=== PATIENT | female | born 2000 | race Caucasian/White ===

== ENCOUNTER 2019-01-21 00:39 | Emergency (ER) | payer OTHER ==
[~2019-01-21] VITALS: Ht 157.5 cm; Wt 64.4 kg
[2019-01-21 00:43] VITALS: BP 126/85
--- NOTE | 2019-01-21 00:48 | NUR ---
PT AMBULATED TO BED 2.
--- NOTE | 2019-01-21 01:40 | NUR ---
ERMD AT BEDSIDE.
--- NOTE | 2019-01-21 01:48 | NUR ---
C/O MOVING LOPEZ X1 WEEK. LOPEZ WORSE X6 HRS. HIT HEAD ONE WEEK AGO AND HAVING CONTINUOUS LOPEZ'S. VSS. DIZZINESS. NO CHANGE IN VISION. A&X4. PERRL. SHANE MADE AWARE.
[2019-01-21 02:13] VITALS: BP 126/85
== END 2019-01-21 02:13 | disposition home or self-care (01) ==
LOC: MED 00:39
DX: S09.90XA Unspecified injury of head, initial encounter (principal); W22.01XA Walked into wall, initial encounter; Y93.89 Activity, other specified; Y92.89 Other specified places as the place of occurrence of the external cause; Y99.8 Other external cause status
CPT/HCPCS: 70450; 99284

== ENCOUNTER 2019-02-21 20:47 | Emergency (ER) | payer OTHER ==
[~2019-02-21] VITALS: Ht 157.5 cm; Wt 65.8 kg
[2019-02-21 20:50] VITALS: BP 129/60
--- NOTE | 2019-02-21 20:50 | NUR ---
TO BED # 11 AMBULATORY
--- NOTE | 2019-02-21 21:12 | NUR ---
BIB SELF REPORTS HEADACHE AND LOWER ABD CRAMPING X3 DAYS. STATES THAT SHE IS SUPPOSE TO START HER PERIOD AND NORMALLY HAS THESE SYMPTOMS BEFORE SHE STARTS HER PERIOD. STATES THE HEADACHE IS LOCATED ABOVE HER EYES. DENIES OTHER SYMPTOMS AT THIS TIME.
[2019-02-21 21:21] LABS: APPEARANCE,URINE CLEAR (CLEAR); BILIRUBIN,URINE NEGATIVE (NEGATIVE); BLOOD, URINE NEGATIVE (NEGATIVE); COLOR,URINE YELLOW (YELLOW); LEUKOCYTE ESTERASE ,URINE NEGATIVE (NEGATIVE); NITRITE, URINE NEGATIVE (NEGATIVE); UGLUCOSE NEGATIVE (NEGATIVE)
[2019-02-21 22:15] LABS: BASOPHILS % (AUTO) 0.4 % (0.0-2.0); EOSINOPHILS # (AUTO) 0.2 K/uL (0-0.4); HEMATOCRIT 37.8 % (36-48); HEMOGLOBIN 12.6 g/dL (12.0-16.0); LYMPHOCYTES # (AUTO) 2.4 K/uL (2.5-16.5); LYMPHOCYTES % (AUTO) 26.4 % (20.5-51.1); MEAN CORPUSCULAR HEMOGLOBIN 29 pg (27-31); MEAN CORPUSCULAR HGB CONC 33 g/dL (33-37); MEAN CORPUSCULAR VOLUME 87.6 fL (80-94); MONOCYTES # (AUTO) 1.2 K/uL (0.8-1.0); MONOCYTES % (AUTO) 12.9 % (1.7-9.3); NEUTROPHILS # (AUTO) 5.2 K/uL (1.8-7.7); NEUTROPHILS % (AUTO) 58.3 % (42.2-75.2); PLATELET COUNT (AUTO) 305 K/uL (140-450); RED BLOOD CELL COUNT(AUTO) 4.32 MIL/uL (4.20-5.40); RED CELL DISTRIBUTION WIDTH 13.9 % (11.6-13.7)
[2019-02-21 22:40] LABS: ALBUMIN 3.9 g/dL (3.4-5.0); ANION GAP 11.5 (8-16); CARBON DIOXIDE 27.2 mmol/L (21-32); CREATININE 0.7 mg/dL (0.6-1.3); POTASSIUM 3.7 mmol/L (3.5-5.1); TOTAL BILIRUBIN 0.2 mg/dL (0.0-1.0)
--- NOTE | 2019-02-21 22:45 | NUR ---
NO NEW NEEDS STATED AT THIS TIME. PATIENT SITTING UP IN BED, AT BEDSIDE.
--- NOTE | 2019-02-22 | NUR ---
PATIENT INFORMED WE WERE WAITING FOR RESULTS. GIVEN SNACK AND WATER. NO NEEDS REPORTED.
[2019-02-22 01:11] VITALS: BP 129/60
--- NOTE | 2019-02-22 01:11 | NUR ---
Patient discharged with v/s stable. Written and verbal after care instructions given and explained. Patient verbalized understanding. Ambulatory with steady gait. All questions addressed prior to discharge. Advised to follow up with OB.
== END 2019-02-22 01:11 | disposition home or self-care (01) ==
LOC: MED 20:47
DX: O26.899 Other specified pregnancy related conditions, unspecified trimester (principal); R10.30 Lower abdominal pain, unspecified; R51 Headache
CPT/HCPCS: 36415; 76817; 80053; 81003; 81025; 83690; 84702; 85025; 86900; 86901; 99284; Q0092

== ENCOUNTER 2019-02-25 04:06 | Emergency (ER) | payer OTHER ==
[~2019-02-25] VITALS: Ht 157.5 cm; Wt 67.6 kg
[2019-02-25 04:18] VITALS: BP 118/64
--- NOTE | 2019-02-25 04:26 | NUR ---
PT AMBULATED TO THE RESTROOM AND THEN TO BED #12
--- NOTE | 2019-02-25 04:31 | NUR ---
PT AMBULATED TO BED #7
--- NOTE | 2019-02-25 04:32 | NUR ---
PT CAME IN TO ER FOR A RECHECK. PT STATED THAT SHE WAS SEEN 3 DAYS AGO AND WAS INSTRUCTED TO COME BACK TO RECHECK HER DUE TO CRAMPING/5 WEEKS . PT STATES SHE STILL HAS SOME CRAMPING. NO PAIN AT THIS TIME. PT MADE AN OPP FOR February WITH AN OBGYN. PT DENIES VAG BLEEDING. PT STATES SHE HAS NO PAIN AT THIS TIME 0/10. ER MD MADE AWARE OF STATUS. SAFETY MEASURES IN PLACE. PT IS . [facility]
--- NOTE | 2019-02-25 04:42 | NUR ---
LAB AT BEDSIDE.
[2019-02-25 04:59] LABS: BASOPHILS % (AUTO) 0.3 % (0.0-2.0); EOSINOPHILS # (AUTO) 0.2 K/uL (0-0.4); EOSINOPHILS % (AUTO) 2.1 % (0.0-4.0); HEMATOCRIT 37.4 % (36-48); HEMOGLOBIN 12.6 g/dL (12.0-16.0); LYMPHOCYTES # (AUTO) 2.8 K/uL (2.5-16.5); LYMPHOCYTES % (AUTO) 31.7 % (20.5-51.1); MEAN CORPUSCULAR HEMOGLOBIN 30 pg (27-31); MEAN CORPUSCULAR HGB CONC 34 g/dL (33-37); MEAN CORPUSCULAR VOLUME 88.3 fL (80-94); MONOCYTES # (AUTO) 0.9 K/uL (0.8-1.0); MONOCYTES % (AUTO) 10.4 % (1.7-9.3); NEUTROPHILS # (AUTO) 4.9 K/uL (1.8-7.7); NEUTROPHILS % (AUTO) 55.5 % (42.2-75.2); PLATELET COUNT (AUTO) 294 K/uL (140-450); RED BLOOD CELL COUNT(AUTO) 4.24 MIL/uL (4.20-5.40); RED CELL DISTRIBUTION WIDTH 13.7 % (11.6-13.7); WHITE BLOOD COUNT (AUTO) 8.9 K/uL (4.5-11.0)
[2019-02-25 05:02] LABS: BILIRUBIN,URINE NEGATIVE (NEGATIVE); BLOOD, URINE NEGATIVE (NEGATIVE); LEUKOCYTE ESTERASE ,URINE NEGATIVE (NEGATIVE); NITRITE, URINE NEGATIVE (NEGATIVE); UGLUCOSE NEGATIVE (NEGATIVE)
--- NOTE | 2019-02-25 05:17 | NUR ---
DR. OSMAN BEDSIDE EVALUATING PT
[2019-02-25 05:24] LABS: APPEARANCE,URINE HAZY (CLEAR); COLOR,URINE YELLOW (YELLOW)
[2019-02-25 05:26] LABS: RBC,URINE 0-5 /HPF (0-5); WBC,URINE 0-5 /HPF (0-5)
--- NOTE | 2019-02-25 05:58 | NUR ---
Patient discharged with v/s stable. Patient acting appropriatly, states she has a appointment this with OBGYN. Written and verbal after care instructions given and explained. Patient verbalized understanding. Ambulatory with steady gait. All questions addressed prior to discharge. Advised to follow up with PMD.
[2019-02-25 06:00] VITALS: BP 110/68
== END 2019-02-25 05:58 | disposition home or self-care (01) ==
LOC: MED 04:06
DX: O20.0 Threatened abortion (principal); Z3A.01 Less than 8 weeks gestation of pregnancy
CPT/HCPCS: 36415; 81001; 81025; 84702; 85025; 87086; 99283

== ENCOUNTER 2019-04-03 19:07 | Emergency (ER) | payer OTHER ==
[~2019-04-03] VITALS: Ht 162.6 cm; Wt 66.0 kg
[2019-04-03 19:20] VITALS: BP 116/81
--- NOTE | 2019-04-03 19:24 | NUR ---
PT AMBULATED TO LOBBY AT THIS TIME, VSS.
[2019-04-03 21:23] VITALS: BP 123/81
--- NOTE | 2019-04-03 21:24 | NUR ---
Patient discharged with v/s stable. Written and verbal after care instructions given and explained. Patient alert, oriented and verbalized understanding of instructions. Ambulatory with steady gait. All questions addressed prior to discharge. ID band removed. Patient advised to follow up with PMD. Rx of BENADRYL given. Patient educated on indication of medication including possible reaction and side effects. Opportunity to ask questions provided and answered.
== END 2019-04-03 21:23 | disposition home or self-care (01) ==
LOC: MED 19:07
DX: O9A.211 Injury, poisoning and certain other consequences of external causes complicating pregnancy, first trimester (principal); T63.301A Toxic effect of unspecified spider venom, accidental (unintentional), initial encounter; Z3A.10 10 weeks gestation of pregnancy; Z98.890 Other specified postprocedural states
CPT/HCPCS: 99282

== ENCOUNTER 2019-09-20 21:40 | Emergency (ER) | payer OTHER ==
[~2019-09-20] VITALS: Ht 162.6 cm; Wt 65.3 kg
--- NOTE | 2019-09-20 21:42 | NUR ---
PT TAKEN TO BED 7
[2019-09-20 21:43] VITALS: BP 119/72
--- NOTE | 2019-09-20 22:17 | NUR ---
Dr. Gutiérrez examining patient.
--- NOTE | 2019-09-20 22:20 | NUR ---
19 YEAR OLD FEMALE COMPLAINS OF GENERALIZED WEAKNESS X 2 DAYS. PATIENT STATES THAT SHE SEES VARGHESE IN HER VISION, FEELS CONFUSED AT TIMES, PANICS, AND RANDOMLY FEELS HEADACHES. PATIENT IS ALERT AND ORIENTED, BREATHING EVEN AND UNLABORED, SKIN WARM AND DRY. BED IN LOWEST POSITION, LOCKED, BED RAIL UPX1.
[2019-09-20 23:01] LABS: ANION GAP 14.6 (8-16); CREATININE 0.5 mg/dL (0.6-1.3); POTASSIUM 3.6 mmol/L (3.5-5.1)
[2019-09-20 23:07] LABS: ALBUMIN 2.7 g/dL (3.4-5.0); TOTAL BILIRUBIN 0.2 mg/dL (0.0-1.0)
[2019-09-21 00:30] VITALS: BP 120/62
--- NOTE | 2019-09-21 00:30 | NUR ---
Patient discharged with v/s stable. Written and verbal after care instructions given and explained. Patient verbalized understanding. Ambulatory with steady gait. All questions addressed prior to discharge. Advised to follow up with PMD.
== END 2019-09-21 00:30 | disposition home or self-care (01) ==
LOC: MED 21:40
DX: O26.893 Other specified pregnancy related conditions, third trimester (principal); R53.1 Weakness; R42 Dizziness and giddiness; Z3A.35 35 weeks gestation of pregnancy
CPT/HCPCS: 36415; 80053; 81002; 99283

== ENCOUNTER 2019-10-31 03:23 | Emergency (ER) | payer OTHER ==
[~2019-10-31] VITALS: Ht 160 cm; Wt 64.0 kg
[2019-10-31 03:31] VITALS: BP 109/74
[2019-10-31] MEDS ORDERED: KETOROLAC 30 MG/ML VIAL ONE (03:39)
[2019-10-31] MEDS ORDERED: KETOROLAC 30 MG/ML VIAL IM ONE (03:40)
[2019-10-31 04:12] VITALS: BP 109/74
== END 2019-10-31 04:12 | disposition home or self-care (01) ==
LOC: MED 03:23
DX: R51 Headache (principal)
CPT/HCPCS: 96372; 99283; J1885

== ENCOUNTER 2019-11-28 23:29 | Emergency (ER) | payer OTHER ==
[~2019-11-28] VITALS: Ht 160 cm; Wt 57.6 kg
[2019-11-29 00:02] VITALS: BP 121/70
--- NOTE | 2019-11-29 00:02 | NUR ---
TO BED # 08 AMBULATORY
--- NOTE | 2019-11-29 00:24 | NUR ---
19 YEAR OLD FEMALE COMPLAINS OF CHEST PAIN STARTING IN OCTOBER AFTER SHE GAVE . PATIENT STATES THAT SINCE YESTERDAY CHEST PAIN HAS GOTTEN WORSE AND IS NOW ON/OFF PAIN THAT WOULD FEEL LIKE STRAINING. PATIENT STATES PAIN YESTERDAY HAD SOME SHORTNESS OF BREATHE ASSOCIATED. PATIENT DENIES CHEST PAIN AND SHORTNESS OF BREATHE CURRENTLY. PATIENT AOX4, BREATHING EVEN AND UNLABORED, SKIN WARM AND DRY. ERMD AWARE OF PT STATUS. BED IN LOWEST POSITION, LOCKED, BED RAIL UPX1. PMH - OVARIAN CYST REMOVAL ALLERGIES - [facility]
--- NOTE | 2019-11-29 01:30 | NUR ---
PATIENT ALERT AND AWAKE, BREATHING EVEN AND UNLABORED
[2019-11-29 01:45] VITALS: BP 97/47
== END 2019-11-29 01:45 | disposition home or self-care (01) ==
LOC: MED 23:29
DX: R06.4 Hyperventilation (principal); R07.89 Other chest pain
CPT/HCPCS: 36600; 71045; 82803; 87804; 93005; 99285; Q0092